=== PATIENT | male | born 1970 | race Caucasian/White ===

== ENCOUNTER 2021-10-23 08:29 | Day surgery (SDC) | payer BC ==
[2021-10-21 11:08] VITALS: BMI 33.3
[~2021-10-23 08:29] MED LIST: LACTATED RINGERS 1,000 ML IV SCH
[2021-10-23 09:13] VITALS: RESP 16; TEMP 97.8
[2021-10-23] MEDS ORDERED: PROPOFOL 10 MG/ML 20 ML VIAL IV ONE (09:48)
--- NOTE | 2021-10-23 10:07 | P.PCN ---
Date of Procedure: 10/23/21 Procedure(s) Performed: BRIEF HISTORY: Patient is a 51-year-old pleasant male scheduled for an elective colonoscopy as a part of value should of positive cologuard PROCEDURE PERFORMED: Colonoscopy. PREOPERATIVE DIAGNOSIS: Positive cologuard. IV sedation per Anesthesia. PROCEDURE: After informed consent was obtained, the patient, was brought into the endoscopy unit. IV sedation was administered by Anesthesia under continuous monitoring. Digital rectal examination was normal. Initially the Olympus CF-160 flexible video colonoscope was then inserted in the rectum, gradually advanced into the cecum without any difficulty. Careful examination was performed as the scope was gradually being withdrawn. Ileocecal valve and the appendiceal orifice were visualized and appeared normal. Prep was excellent. Mucosa of the cecum, ascending colon, transverse colon, descending colon, sigmoid colon, and rectum appeared normal. Retroflexion was performed in the rectum and no lesions were seen. The patient tolerated the procedure well. IMPRESSION: Normal-appearing colon from rectum to cecum with no evidence of colorectal neoplasia. RECOMMENDATIONS: Findings of this examination were discussed with the patient as well as his family. He was advised to have a repeat screening colonoscopy in 10 years..
[2021-10-23 10:26] VITALS: BP 124/85; PULSE 79
== END 2021-10-23 10:47 | disposition home or self-care (01) ==
LOC: ORWHC2ENDO 08:29
PROVIDERS: ATTEND Internal Medicine Gastroenterology
DX: R19.5 Other fecal abnormalities (principal); G43.909 Migraine, unspecified, not intractable, without status migrainosus; Z79.899 Other long term (current) drug therapy; Z80.9 Family history of malignant neoplasm, unspecified
CPT/HCPCS: 45378; J2704

== ENCOUNTER → 2022-12-23 | Outpatient (CLI) | payer BC ==
[2022-12-23 16:39] LABS: HCT 44.5 % (39.6-50.0); HGB 14.8 d/dL (13.0-17.0); MCH 30.1 pg (27.0-32.0); MCHC 33.3 d/dL (32.0-37.0); MCV 90.4 FL (80.0-97.0); Mean Platelet Volume 11.5 FL (9.5-12.2); NRBC Per 100 WBC 0 X 10*3/uL (0.00-0.01); Platelet Count 287 X 10*3/uL (140-440); RBC 4.92 X 10*6/uL (4.40-5.60); RDW 12.4 % (11.5-14.5); WBC 9.31 X 10*3/uL (4.50-10.00)
[2022-12-23 16:52] LABS: Blood Urea Nitrogen 13.5 mg/dL (9.0-27.0); Carbon Dioxide 20.6 mmol/L (21.6-31.8); Chloride 104 mmol/L (96-109); Potassium 4.4 mmol/L (3.5-5.5); Sodium 138 mmol/L (135-145)
== END | disposition home or self-care (01) ==
LOC: LABPAT 10:09
PROVIDERS: ATTEND Internal Medicine
DX: Z01.812 Encounter for preprocedural laboratory examination (principal); R94.39 Abnormal result of other cardiovascular function study
CPT/HCPCS: 80051; 82565; 84520; 85027

== ENCOUNTER → 2023-05-20 | Outpatient (CLI) | payer BC ==
--- NOTE | 2023-05-20 16:10 | P.SLEEP ---
History of Present Illness DATE: 10/31/2023 CONSULTATION/NEW PATIENT EVALUATION HISTORY OF PRESENT ILLNESS/SLEEP-WAKE EVALUATION: 52-year-old gentleman had been evaluated in the sleep center for possible obstructive sleep apnea hypopnea syndrome. SLEEP SCHEDULE: Usually sleep schedule from 10 PM to 6 AM on weekdays and from 10 PM to 7 AM on weekend. FALLING ASLEEP: No problems with falling asleep. DURING SLEEP: Patient snores and wakes up from sleep 3 times with nocturia No history of hypnogogical hallucinations, sleep paralysis, or cataplexy. DURING THE DAY/WAKE STATE: In the morning patient wake up tired. [place] sleepiness scale is very high range of 16. Patient usually doesn't take naps. PAST MEDICAL HISTORY: Hypertension, migraines, acid reflux, ADD. PAST SURGICAL HISTORY: Appendectomy. MEDICATIONS: Topamax 40 mg once a day, amlodipine 5 mg once a day, metoprolol 25 mg once a day, omeprazole 20 mg once a day, atomoxetine. SOCIAL HISTORY: Negative for smoking, no alcohol consumption last 18 years. FAMILY HISTORY: Cancer. REVIEW OF SYSTEMS: Loud snoring, multiple awakenings from sleep, sleepiness during the day. No fevers. No double vision. No recent chest pain. No shortness of breath. No abdominal pain. No bleeding episodes. No blood in urine. No seizure episodes. PHYSICAL EXAMINATION: GENERAL: A pleasant patient without any distress. VITAL SIGNS: BP 129/86 , HR 90 , RR 16 , weight to 86.2 pounds, height 6 foot 2 inches, body mass index 36.7, oxygen saturation at room air 96% . HEENT: PERRLA, EOMI. Evaluation of oropharynx showed tongue protrudes midline, low position of soft palate Mallampati 3. NECK: Supple. No JVD. Thyroid is not palpable. 18-1/4 inches in circumference. LUNGS: Clear to percussion and to auscultation. Good air exchange. No wheezing or rhonchi. HEART: S1, S2 regular. No murmurs, gallops or rubs. ABDOMEN: Soft and nontender. Bowel sounds are present. No organomegaly appreciated. EXTREMITIES: No clubbing or cyanosis. MANAGER CAR: Awake, alert, and oriented x3. Cranial nerves 2 to 7 intact. There is no fasciculation or atrophy noted. No focal deficits observed. ASSESSMENT: 1. Loud snoring, multiple awakenings from sleep, low position of soft palate Mallampati 3, significant excessive daytime sleepiness with [place] Sleepiness Scale 16, wide neck 18-1/4 inches in circumference. Obstructive sleep apnea hypopnea syndrome. 2. Obesity, BMI 36.7. 3. Hypertension. 4. Migraines. 5 acid reflux. 6 . History of ADHD. PLAN: 1. Home sleep apnea test for evaluation of patient's breathing during sleep. 2. CPAP/BiPAP titration if sleep study confirms obstructive sleep apnea- hypopnea syndrome. 3. Preferable position during sleep on the side. 4. No driving if patient feels any sleepiness. Patient is aware of civil and criminal liability for unsafe driving. 5. Sleep hygiene with regular sleep time for at least 7.5-8 hours. 6. Watching and losing weight. Thank you very much for referring this patient for consultation. Sincerely, Hari Woodall MD, PhD, FAASM. Diplomat of [employer], Sleep Medicine Board by [employer] [place] [employer] Photograph Mounter of [facility] [place] Past Medical History Past Medical History: No Reported History Additional Past Medical History / Comment(s): GOUT IN LT ANKLE. HAD STROKE SYMPTOMS 18 YEARS AGO R/T DRUG OVERDOSE History of Any Multi-Drug Resistant Organisms: None Reported Past Surgical History: Appendectomy Additional Past Surgical History / Comment(s): COLONOSCOPY Past Anesthesia/Blood Transfusion Reactions: No Reported Reaction Past Psychological History: ADD/ADHD - Past Family History Mother Family Medical History: Cancer Medications and Allergies Home Medications Medication Instructions Recorded Confirmed Type Atomoxetine HCl [Strattera] 40 mg PO BID 10/21/21 12/26/22 History buPROPion HCL [buPROPion HCL Xl] 150 mg PO QAM 10/21/21 12/26/22 History Aspirin EC [Ecotrin Low Dose] 81 mg PO DAILY 12/26/22 12/26/22 History Metoprolol Succinate [Metoprolol 25 mg PO DAILY 12/26/22 12/26/22 History Succinate ER] Omeprazole 20 mg PO DAILY 12/26/22 12/26/22 History amLODIPine [Norvasc] 5 mg PO DAILY 12/26/22 12/26/22 History predniSONE [Deltasone] 20 mg PO TID PRN 12/26/22 12/26/22 History Allergies Allergy/AdvReac Type Severity Reaction Status Date / Time No Known Allergies Allergy Verified 12/26/22 09:10 Sleep Note - Sleep Note Sleep Note: Temperature: Pulse Rate: Respiratory Rate: Blood Pressure: SpO2: Height: Weight: BMI: Neck Circumference:
== END ==
LOC: 3 N SLEEP 14:59
PROVIDERS: ATTEND Internal Medicine
DX: G47.33 Obstructive sleep apnea (adult) (pediatric) (principal); E66.9 Obesity, unspecified; I10 Essential (primary) hypertension; G43.909 Migraine, unspecified, not intractable, without status migrainosus; K21.9 Gastro-esophageal reflux disease without esophagitis; F90.9 Attention-deficit hyperactivity disorder, unspecified type; Z68.36 Body mass index [BMI] 36.0-36.9, adult; Z79.899 Other long term (current) drug therapy; Z79.82 Long term (current) use of aspirin
CPT/HCPCS: 99211

== ENCOUNTER → 2023-05-27 | Outpatient (CLI) | payer BC ==
--- NOTE | 2023-05-28 12:15 | P.PCN ---
Description of Procedure: CLINICAL: A home sleep apnea test has been done for confirmation of possible obstructive sleep apnea-hypopnea syndrome. DESCRIPTION OF PROCEDURE: RESULTS: Recording time was 8 hours 3 minutes. Evaluation time was 7 hours 51 minutes. Evaluation time is sufficient for making conclusion about results of the test. Raw data of sleep recording has been reviewed and is adequate. Respiratory channel showed 31 apneas and 288 hypopneas. Apnea-hypopnea index was 40.6 per hour. Pulse rate in the range between minimum 65, maximum 97, average 80 by computer calculation. Lowest desaturation was 79 %. IMPRESSION: 1. Severe Obstructive Sleep Apnea Hypopnea Syndrome. Please see other impressions from consultation. PLAN: 1. The patient should have PAP titration for correction of respiratory abnormallities during sleep. 2. Sleep hygiene with regular time in bed for at least 8 hours. 3. Watching and losing weight. 4. No driving if feeling any sleepiness. Thank you very much for allowing me to participate in the management of your patient. Sincerely, Hari Woodall MD, PhD, FAASM Diplomat of [employer] Sleep Medicine Board of [employer] Belt Maker Helper of [facility] [place]
== END ==
LOC: 3 N SLEEP 17:07
PROVIDERS: ATTEND Internal Medicine
DX: G47.33 Obstructive sleep apnea (adult) (pediatric) (principal); Z79.82 Long term (current) use of aspirin

== ENCOUNTER 2023-07-26 19:52 | Outpatient (CLI) | payer BC ==
--- NOTE | 2023-07-29 14:22 | P.PCN ---
Description of Procedure: CLINICAL: Titration with positive air pressure has been done for correction of respiratory abnormalities during sleep. DESCRIPTION OF PROCEDURE: The standard montage for clinical polysomnography included the electroencephalogram, the electrocardiogram, the mentalis surface electromyography and Lead II cardiography. The respiratory battery consisted of measurements of nasal /buccal air flow, pressure transducer measurements from the nose, thoracic and /or abdominal effort and intercostal surface electromyography. Video monitoring has been done to check for any parasomnia events. Nocturnal oxyhemoglobin saturations were obtained by finger oximetry. Step-parker titration with positive airway pressure was utilized to control respiratory events. Raw data of sleep recording has been reviewed and is adequate. RESULTS: Sleep efficiency was decreased to 74.9%. Latency to sleep onset was prolonged to 54.5 minutes.]. Sleep architecture showed stage N1 was extremely short 1.7%, Delta sleep was absent 0%, REM sleep was slightly decreased to 17.1%. Heart rate was minimum 78 BPM, maximum 84 BPM, average 81 BPM. EMG showed 90.9 periodic limb movements per hour with 0 micriarousals per hour. PAP titration have been done with CPAP up to the pressure 17 cm H2O. The best results were at the pressure 17 cm H2O. Apnea hypopnea index reduced to 11.5. IMPRESSION: 1. Obstructive sleep apnea hypopnea syndrome improved with PAP treatment. 2. Extremely severe periodic limb movements have been documented. Please see other impressions from consultation. PLAN: 1. The patient will have treatment with positive air pressure equipment with the level of pressure AutoPAP 6-19 cm H2O and should use it every night for the whole night. 2. Watching and losing weight. 3. Sleep hygiene with regular time in bed for at least 8 hours. 4. No driving if feeling any sleepiness. 5. I will see the patient for follow up visit to explain the results of the test, recommendations, check compliance with treatment and make any necessary adjustment related to mask fitting, pressure and humidification. 6. Please check iron profile including ferritin level. Low level of iron may increase risk for periodic limb movements Thank you very much for allowing me to participate in the management of your patient. Sincerely, Hari Woodall MD, PhD, FAASM Diplomat of [employer] Sleep Medicine Board of [employer] Internal Medicine Quarantine Inspector of [facility] [place]
== END 2023-07-27 05:42 | disposition home or self-care (01) ==
LOC: 3 N SLEEP 19:52
PROVIDERS: ATTEND Internal Medicine
DX: G47.33 Obstructive sleep apnea (adult) (pediatric) (principal); G47.61 Periodic limb movement disorder; E66.9 Obesity, unspecified; I10 Essential (primary) hypertension; G40.909 Epilepsy, unspecified, not intractable, without status epilepticus; G47.10 Hypersomnia, unspecified; K21.9 Gastro-esophageal reflux disease without esophagitis; F90.9 Attention-deficit hyperactivity disorder, unspecified type; Z68.36 Body mass index [BMI] 36.0-36.9, adult; Z79.899 Other long term (current) drug therapy
CPT/HCPCS: 95811

== ENCOUNTER → 2023-10-01 | Outpatient (CLI) | payer BC ==
[2023-10-01 16:48] VITALS: BP 151/96; PULSE 96; RESP 16; TEMP 97.9
--- NOTE | 2023-10-01 17:25 | P.PROGSL ---
Subjective DATE: 10/09/2023 FOLLOW UP VISIT. Patient with obstructive sleep apnea hypopnea syndrome return to sleep center for follow-up visit. Recently patient had sleep study which documented obstructive sleep apnea hypopnea syndrome. Patient was initiated on PAP therapy and today is first visit after treatment was started. Patient feels more energy in the morning after using CPAP equipment Patient was able to use PAP equipment every night for the whole night. The patient does not have significant problems with the mask, PAP pressure and humidification. [place] sleepiness scale is increased to 14. I checked information from PAP unit. PAP unit pressure 6-19, average 14.6 cm H2O. Usage is 93% and 80% for more then 4 hours, average 5.5 hours per night. Leak is increased to 43.7 l/m, patient has monzon and mustache. Apnea Hypopnea Index is 3.6, which is normal. MEDICATIONS: Please see below During physical exam: GENERAL: A pleasant patient without any distress. VITAL SIGNS: Please see below. HEENT: PERRLA, EOMI.low position of soft palate, Mallapati[] . NECK: Supple. No JVD. LUNGS: Clear to percussion and to auscultation. Good air exchange. No wheezing or rhonchi. HEART: S1, S2 regular. ABDOMEN: Soft and nontender.[] EXTREMITIES: No clubbing or cyanosis. STACKING MACHINE OPERATOR: Awake, alert, and oriented x3. No focal deficit. Impressions: 1. Severe obstructive sleep apnea-hypopnea syndrome. Patient demonstrated good compliance with treatment, benefiting from treatment. 2. Hypertension. 3. History of migraines. 4. Obesity. 5. Acid reflux. 6. History of ADHD. Plan: 1. Continue using PAP equipment every night for the whole night. 2. To change air filter at least 1-2 times per month. 3. PAP unit should stay lower then position of the head. 4. Advised patient to remove all remaining water from humidifier canister daily and make it dry after each usage. Refill canister with fresh distilled water before each usage. 5. Sleep hygiene with regular time in bed for at least 8 hours. 6. Precautions related to driving. No driving if feel any sleepiness. 7. I will maintain prescription for PAP supplies including mask, tube, filters. 8. Follow up visit in 6 months or earlier if patient has any problems. 9. Watching weight. Thank you very much for allowing me to participate in the management of your patient. Hari Woodall MD, PhD, FAASM. Diplomat of [employer], Sleep Medicine Board by [employer] Medicine Risk Compliance Analyst of [facility] [place] But for some reason this patient Objective - Vital Signs Vital Signs: Vital Signs Temp 97.9 F 10/01/23 16:45 Pulse 96 10/01/23 16:45 Resp 16 10/01/23 16:45 BP 151/96 10/01/23 16:45 Pulse Ox 96 10/01/23 16:45 FiO2 Intake & Output 09/30/23 10/01/23 10/01/23 18:59 06:59 18:59 Weight 129.727 kg Home Medications: Home Medications Medication Instructions Recorded Confirmed Type Atomoxetine HCl [Strattera] 40 mg PO BID 10/21/21 10/01/23 History buPROPion HCL [buPROPion HCL Xl] 150 mg PO QAM 10/21/21 10/01/23 History Aspirin EC [Ecotrin Low Dose] 81 mg PO DAILY 12/26/22 10/01/23 History Metoprolol Succinate [Metoprolol 25 mg PO DAILY 12/26/22 10/01/23 History Succinate ER] Omeprazole 20 mg PO DAILY 12/26/22 10/01/23 History amLODIPine [Norvasc] 5 mg PO DAILY 12/26/22 10/01/23 History predniSONE [Deltasone] 20 mg PO TID PRN 12/26/22 12/26/22 History
== END ==
LOC: 3 N SLEEP 16:16
PROVIDERS: ATTEND Internal Medicine
DX: G47.33 Obstructive sleep apnea (adult) (pediatric) (principal); I10 Essential (primary) hypertension; E66.9 Obesity, unspecified; K21.9 Gastro-esophageal reflux disease without esophagitis; F90.9 Attention-deficit hyperactivity disorder, unspecified type; Z86.69 Personal history of other diseases of the nervous system and sense organs; Z79.899 Other long term (current) drug therapy; Z68.36 Body mass index [BMI] 36.0-36.9, adult; Z99.89 Dependence on other enabling machines and devices
CPT/HCPCS: 99212

== ENCOUNTER → 2024-06-09 | Outpatient (CLI) | payer BC ==
[2024-06-09 16:57] VITALS: BP 145/100; PULSE 105; RESP 20; TEMP 98.2
--- NOTE | 2024-06-09 17:25 | P.PROGSL ---
Subjective DATE: 06/09/2024 FOLLOW UP VISIT. Patient with obstructive sleep apnea hypopnea syndrome return to sleep center for follow-up visit. Information from previous visit have been reviewed. Patient is using PAP equipment every night for the whole night, getting PAP supplies in time. The patient does not have significant problems with the mask, PAP unit and humidification. [place] sleepiness scale is increased to 13. I checked information from PAP unit. PAP unit pressure 6-19, average 14 cm H2O. Usage is 100% for more then 4 hours, average 6.2 hours per night. Leak is increased to 42 l/m. Apnea Hypopnea Index is 1.6, which is normal. MEDICATIONS have been reviewed, please see below. During physical exam: GENERAL: A pleasant patient without any distress. VITAL SIGNS: Please see below, weight is 290.4 lbs. HEENT: PERRLA, EOMI.low position of soft palate, Mallapati 3. NECK: Supple. No JVD. LUNGS: Clear to percussion and to auscultation. Good air exchange. No wheezing or rhonchi. HEART: S1, S2 regular. ABDOMEN: Soft and nontender.[] EXTREMITIES: No clubbing or cyanosis. RESIDENTIAL REMODELING SUBCONTRACTOR: Awake, alert, and oriented x3. No focal deficit. Impressions: 1. Obstructive sleep apnea-hypopnea syndrome. Patient demonstrated great compliance with treatment, benefiting from treatment. 2. Obesity, BMI 37.2. 3. Hypertension. 4. History of migraines. 5. Acid reflux. 6. History of ADHD. Plan: 1. Continue using PAP equipment every night for the whole night. 2. Sleep hygiene with regular time in bed for at least 7.5-8 hours 3. PAP unit should stay lower then position of the head. 4. Advised patient to remove all remaining water from humidifier canister daily and make it dry after each usage. Refill canister with fresh distilled water before each usage. 5. Watching and losing weight. 6. Precautions related to driving. No driving if feel any sleepiness. 7. I will maintain prescription for PAP supplies including mask, tube, filters. 8. Follow up visit in 8 months or earlier if patient has any problems. Thank you very much for allowing me to participate in the management of your patient. Hari Woodall MD, PhD, FAASM. Diplomat of [employer] Sleep Medicine, Sleep Medicine Board by [employer] Board of Internal Medicine Bi Developer of [facility] [place] Objective - Vital Signs Vital Signs: Vital Signs Temp 98.2 F 06/09/24 16:42 Pulse 105 H 06/09/24 16:42 Resp 20 06/09/24 16:42 BP 145/100 06/09/24 16:42 Pulse Ox 97 06/09/24 16:42 FiO2 Intake & Output 06/08/24 06/09/24 06/09/24 18:59 06:59 18:59 Weight 131.655 kg Home Medications: Home Medications Medication Instructions Recorded Confirmed Type Atomoxetine HCl [Strattera] 40 mg PO BID 10/21/21 10/01/23 History buPROPion HCL [buPROPion HCL Xl] 150 mg PO QAM 10/21/21 10/01/23 History Aspirin EC [Ecotrin Low Dose] 81 mg PO DAILY 12/26/22 10/01/23 History Metoprolol Succinate [Metoprolol 25 mg PO DAILY 12/26/22 10/01/23 History Succinate ER] Omeprazole 20 mg PO DAILY 12/26/22 10/01/23 History amLODIPine [Norvasc] 5 mg PO DAILY 12/26/22 10/01/23 History predniSONE [Deltasone] 20 mg PO TID PRN 12/26/22 12/26/22 History
== END ==
LOC: 3 N SLEEP 16:14
PROVIDERS: ATTEND Internal Medicine
DX: G47.33 Obstructive sleep apnea (adult) (pediatric) (principal); E66.9 Obesity, unspecified; I10 Essential (primary) hypertension; K21.9 Gastro-esophageal reflux disease without esophagitis; Z68.37 Body mass index [BMI] 37.0-37.9, adult; Z86.69 Personal history of other diseases of the nervous system and sense organs; Z86.59 Personal history of other mental and behavioral disorders
CPT/HCPCS: 99212